=== PATIENT | male | born 1960 | race Caucasian/White ===

== ENCOUNTER 2017-06-02 22:36 | Observation (INO) | payer MEDICAID ==
[2017-06-02 22:52] VITALS: RESP 20
[2017-06-02] MEDS ORDERED: Sodium Chloride 0.9% 1,000 ML IV ONE (23:42)
[2017-06-02 23:52] LABS: BASO # 0.1 K/uL (0.0-0.2); BASO % 0.9 % (0.0-2.0); EOS # 0.2 K/uL (0.0-0.7); EOS % 2.7 % (0.0-4.0); HEMOGLOBIN 15.4 g/dL (12.0-18.0); LYMPH # 2.5 K/uL (1.0-4.3); LYMPH % 31.5 % (20.0-40.0); MEAN CORPUSCULAR HEMOGLOBIN 30.7 pg (27.0-31.0); MEAN CORPUSCULAR HGB CONC 34.1 g/dL (33.0-37.0); MEAN PLATELET VOLUME 8.9 fL (7.2-11.7); MONO # 0.8 K/uL (0.0-0.8); MONO % 9.9 % (0.0-10.0); NEUT # 4.3 K/uL (1.8-7.0); NRBC % 0.1 % (0.0-2.0); RBC 5.01 Mil/uL (4.40-5.90); RED CELL DISTRIBUTION WIDTH 13.9 % (11.5-14.5); WHITE BLOOD COUNT 7.8 K/uL (4.8-10.8)
--- NOTE | 2017-06-03 00:11 | C.PDOC ---
History Of Present Illness 56 year old male with a Hx diabetes and HTN presents to the ER with a complaint of chest discomfort and dizzines, states he felt like he was going to "pass out ". Denies nausea or vomiting. Time Seen by Provider: 06/02/17 23:28 Chief Complaint (Nursing): Dizziness/Lightheaded History Per: Patient History/Exam Limitations: no limitations Onset/Duration Of Symptoms: Hrs Current Symptoms Are (Timing): Still Present Seizure Or Post-ictal Symptoms: None Fall Associated With With Symptoms: No Recent travel outside of the [place]: No Past Medical History Reviewed: Historical Data, Nursing Documentation, Vital Signs Vital Signs: Last Vital Signs Temp 97.5 F L 06/02/17 22:45 Pulse 95 H 06/02/17 23:41 Resp 20 06/02/17 22:45 BP 112/74 06/02/17 22:45 Pulse Ox 98 06/03/17 00:16 - Medical History PMH: Diabetes, HTN Family History: States: Unknown Family Hx - Social History Hx Tobacco Use: No Hx Alcohol Use: No Hx Substance Use: No - Immunization History Hx Tetanus Toxoid Vaccination: Yes Hx Influenza Vaccination: Yes Hx Pneumococcal Vaccination: Yes Review Of Systems Except As Marked, All Systems Reviewed And Found Negative. Constitutional: Negative for: Fever, Chills Cardiovascular: Positive for: Chest Pain Respiratory: Negative for: Shortness of Breath Gastrointestinal: Negative for: Nausea, Vomiting, Abdominal Pain Neurological: Positive for: Dizziness Physical Exam - Physical Exam Appears: Non-toxic Skin: Normal Color, Warm, Dry Head: Atraumatic, Normacephalic Eye(s): bilateral: Normal Inspection Oral Mucosa: Moist Neck: Normal, No Midline Cervical Tenderness, No Paracervical Tenderness, Supple Chest: Symmetrical, No Tenderness Cardiovascular: Rhythm Regular Respiratory: Normal Breath Sounds, No Rales, No Rhonchi, No Wheezing Gastrointestinal/Abdominal: Soft, No Tenderness Neurological/Psych: Oriented x3, Normal Speech ED Course And Treatment - Laboratory Results Result Diagrams: 06/02/17 23:55 ECG: Interpreted By Me, Viewed By Me ECG Rhythm: Sinus Rhythm Interpretation Of ECG: Left axis deviation with t wave abnormalities. Rate From EC O2 Sat by Pulse Oximetry: 98 Medical Decision Making Medical Decision Making: Plan: * CT head * EKG * Blood work * Urinalysis * CXR * Antivert * IV fluids Will admit patient to Telemetry/Observation under Dr. Julio Garcia's service for near syncope and chest pain. Disposition Discussed With Dr.: Tricia Garcia Doctor Will See Patient In The: Hospital Counseled Patient/Family Regarding: Studies Performed, Diagnosis - Disposition Disposition: HOSPITALIZED Disposition Time: 00:17 Condition: FAIR Forms: [facility] (Bahamian) - POA Core Measure Indicators: Chest Pain - Clinical Impression Clinical Impression: Dizziness, Near syncope - Scribe Statement The provider has reviewed the documentation as recorded by the Scribmelissa Ron All medical record entries made by the Varinderibmelissa were at my direction and personally dictated by me. I have reviewed the chart and agree that the record accurately reflects my personal performance of the history, physical exam, medical decision making, and the department course for this patient. I have also personally directed, reviewed, and agree with the discharge instructions and disposition.
[2017-06-03] MEDS ORDERED: Sodium Chloride 0.9% 1,000 ML ONE (00:25)
--- NOTE | 2017-06-03 00:27 | CT ---
EXAM: CT Head Without Intravenous Contrast CLINICAL HISTORY: 56 years old, male; Pain; Headache and other: Dizziness TECHNIQUE: Axial computed tomography images of the head/brain without intravenous contrast. All CT scans at this facility use one or more dose reduction techniques, viz.: automated exposure control; ma/kV adjustment per patient size (including targeted exams where dose is matched to indication; i.e. head); or iterative reconstruction technique. Coronal and sagittal reformatted images were created and reviewed. COMPARISON: No relevant prior studies available. FINDINGS: Brain: Minimal atrophy. No intracranial hemorrhage. No mass. No definite edema. Ventricles: No hydrocephalus. Bones/joints: No acute fracture. Soft tissues: Unremarkable. Sinuses: Scattered minimal mucosal thickening. Mastoid air cells: Minimal opacification of RIGHT inferior mastoid. Orbits: Unremarkable as visualized. IMPRESSION: 1. No definite acute intracranial abnormality. 2. Incidental/non-acute findings are described above.
[2017-06-03] MEDS ORDERED: Enoxaparin 40 mg Syringe SC ONE (00:47)
[2017-06-03 01:37] LABS: URINE BILIRUBIN NEGATIVE (NEGATIVE); URINE BLOOD NEGATIVE (NEGATIVE); URINE CLARITY Clear (Clear); URINE COLOR Yellow (YELLOW); URINE GLUCOSE (UA) 3+ mg/dL (Normal); URINE LEUKOCYTE ESTERASE NEG Leu/uL (Negative); URINE NITRATE NEGATIVE (NEGATIVE); URINE PROTEIN NEGATIVE (NEGATIVE); URINE UROBILINOGEN NORMAL mg/dL (0.2-1.0)
[2017-06-03 01:52] LABS: ALB/GLOB RATIO 1.3 (1.0-2.1); ALBUMIN 4.5 g/dL (3.5-5.0); ALT/SGPT 32 U/L (21-72); AST/SGOT 38 U/L (17-59); BLOOD UREA NITROGEN 28 mg/dL (9-20); CALCIUM 9.6 mg/dl (8.6-10.4); GFR AFRICAN-AMERICAN > 60; GFR NON-AFRICAN AMERICAN > 60
[2017-06-03 02:03] LABS: B-TYPE NATRIURETIC PEPTIDE 24.7 pg/mL (0-900)
--- NOTE | 2017-06-03 07:39 | RAD ---
HISTORY: chest pain COMPARISON: None available. TECHNIQUE: Chest, one view. FINDINGS: Examination limited by habitus and hypoinflation. LUNGS: No focal consolidation. Please note that chest x-ray has limited sensitivity for the detection of pulmonary masses. PLEURA: No significant pleural effusion identified. No definite pneumothorax . CARDIOVASCULAR: Heart size appears top normal. OSSEOUS STRUCTURES: No acute osseous abnormality identified. VISUALIZED UPPER ABDOMEN: Unremarkable. OTHER FINDINGS: None. IMPRESSION: Hypoinflation.
[2017-06-03] MEDS: (Novolog) Insulin Aspart, Recombinant 100 u/ml 10 ml vial SC SCH ×3 (08:44→19:07)
[2017-06-03] MEDS ORDERED: Home Med 1 UNIT (Acarbose [Precose] 100 MG) PO SCH ×2 (10:00)
[2017-06-03] MEDS ORDERED: METFORMIN HCL PO SCH ×2 (10:00)
[2017-06-03] MEDS ORDERED: ALOGLIPTIN BENZ PO SCH ×2 (10:00)
[2017-06-03] MEDS ORDERED: Home Med 1 UNIT (Empagliflozin [Jardiance] 25 MG) PO SCH ×2 (10:00)
[2017-06-03] MEDS: Pantoprazole 40 mg EC Tab PO SCH (10:17)
[2017-06-03] MEDS: Enoxaparin 40 mg Syringe SC SCH (10:17)
--- NOTE | 2017-06-03 14:05 | CP.PCM.CON ---
History of Present Illness - History of Present Illness History of Present Illness: 56 year old man with DM, HTN. He is reporting one day onset of severe chest pain. Pain is located in the left chest. Pain is sharp in character. Pain druation was 2-5 minutes. He is reporting similar symptoms 2 weeks ago. He is unable to identify any modifying maneuvers. Review of Systems - Review of Systems All systems: reviewed and no additional remarkable complaints except Past Patient History - Past Social History Smoking Status: Never Smoked - CARDIAC Hx Hypertension: Yes - NEUROLOGICAL Hx Dizziness: Yes - ENDOCRINE/METABOLIC Hx Diabetes Mellitus Type 2: Yes - PSYCHIATRIC Hx Substance Use: No - SURGICAL HISTORY Other/Comment: knee sx. gallbladder sx - ANESTHESIA Hx Anesthesia: No Hx Anesthesia Reactions: No Hx Malignant Hyperthermia: No Has any member of the family had a problem w/ anesthesia?: No Meds Allergies/Adverse Reactions: Allergies Allergy/AdvReac Type Severity Reaction Status Date / Time No Known Allergies Allergy Verified 06/02/17 22:52 - Medications Medications: Current Medications Aspirin (Ecotrin) 81 mg PO DAILY [facility] Last Admin: 06/03/17 10:35 Dose: 81 mg Baclofen (Lioresal) 10 mg PO DAILY [facility] Last Admin: 06/03/17 10:37 Dose: 10 mg Enalapril Maleate (Vasotec) 10 mg PO BID [facility] Last Admin: 06/03/17 10:17 Dose: 10 mg Enoxaparin Sodium (Lovenox) 40 mg SC DAILY [facility] Last Admin: 06/03/17 10:17 Dose: 40 mg Gabapentin (Neurontin) 300 mg PO DAILY [facility] Last Admin: 06/03/17 10:17 Dose: 300 mg Home Med (Acarbose [Precose]) 100 mg PO DAILY [facility] Home Med (Alogliptin Mir/Metformin Hcl [Alogliptin-Metformin 12.5-1000]) 1 each PO BID [facility] Home Med (Empagliflozin [Jardiance]) 25 mg PO DAILY [facility] Hydrochlorothiazide (Hydrodiuril) 25 mg PO BID [facility] Last Admin: 06/03/17 10:17 Dose: 25 mg Insulin Aspart (Novolog) 0 unit SC ACHS [facility] PRN Reason: Protocol Last Admin: 06/03/17 12:52 Dose: 1 unit Loratadine (Claritin) 10 mg PO DAILY [facility] Last Admin: 06/03/17 10:17 Dose: 10 mg Pantoprazole Sodium (Protonix Ec Tab) 40 mg PO DAILY [facility] Last Admin: 06/03/17 10:17 Dose: 40 mg Pioglitazone HCl (Actos) 45 mg PO DAILY [facility] Rosuvastatin Calcium (Crestor) 5 mg PO HS [facility] Physical Exam - Constitutional Appears: Well, Non-toxic - Head Exam Head Exam: ATRAUMATIC, NORMAL INSPECTION - Eye Exam Eye Exam: PERRL. absent: Scleral icterus - ENT Exam ENT Exam: Mucous Membranes Moist, Normal External Ear Exam - Neck Exam Neck exam: Positive for: Full Rom. Negative for: Lymphadenopathy - Respiratory Exam Respiratory Exam: Clear to Auscultation Bilateral, NORMAL BREATHING PATTERN - Cardiovascular Exam Cardiovascular Exam: REGULAR RHYTHM, RRR, +S1, +S2. absent: JVD - GI/Abdominal Exam GI & Abdominal Exam: Normal Bowel Sounds. absent: Organomegaly - Extremities Exam Extremities exam: Negative for: calf tenderness, pedal edema - Neurological Exam Neurological exam: CN II-XII Intact, Oriented x3 - Psychiatric Exam Psychiatric exam: Normal Affect, Normal Mood Results - Vital Signs Recent Vital Signs: Last Vital Signs Temp 97.1 F L 06/03/17 07:05 Pulse 78 06/03/17 08:00 Resp 20 06/03/17 07:05 BP 101/63 06/03/17 10:17 Pulse Ox 92 L 06/03/17 03:31 - Labs Result Diagrams: 06/02/17 23:55 06/03/17 01:38 Labs: Laboratory Results - last 24 hr 06/02/17 06/03/17 06/03/17 23:55 01:25 01:38 WBC 7.8 RBC 5.01 Hgb 15.4 D Hct 45.0 MCV 90.0 MCH 30.7 MCHC 34.1 RDW 13.9 Plt Count 271 MPV 8.9 Neut % (Auto) 55.0 Lymph % (Auto) 31.5 [place] % (Auto) 9.9 Eos % (Auto) 2.7 Baso % (Auto) 0.9 Neut # 4.3 Lymph # 2.5 [place] # 0.8 Eos # 0.2 Baso # 0.1 Sodium 134 Potassium 3.7 Chloride 95 L Carbon Dioxide 22 Anion Gap 21 H BUN 28 H Creatinine 1.0 Est GFR ( Amer) > 60 Est GFR (Non-Af Amer) > 60 POC Glucose (mg/dL) Random Glucose 178 H Calcium 9.6 Total Bilirubin 0.7 AST 38 ALT 32 Alkaline Phosphatase 69 Troponin I < 0.0120 NT-Pro-B Natriuret Pep 24.7 Total Protein 8.1 Albumin 4.5 Globulin 3.5 Albumin/Globulin Ratio 1.3 Urine Color Yellow Urine Clarity Clear Urine pH 5.0 Ur Specific [place] 1.026 Urine Protein Negative Urine Glucose (UA) 3+ H Urine Ketones Negative Urine Blood Negative Urine Nitrate Negative Urine Bilirubin Negative Urine Urobilinogen Normal Ur Leukocyte Esterase Neg Urine WBC (Auto) < 1 Urine RBC (Auto) < 1 06/03/17 06/03/17 06/03/17 03:09 08:28 12:43 WBC RBC Hgb Hct MCV MCH MCHC RDW Plt Count MPV Neut % (Auto) Lymph % (Auto) [place] % (Auto) Eos % (Auto) Baso % (Auto) Neut # Lymph # [place] # Eos # Baso # Sodium Potassium Chloride Carbon Dioxide Anion Gap BUN Creatinine Est GFR ( Amer) Est GFR (Non-Af Amer) POC Glucose (mg/dL) 141 H 153 H 180 H Random Glucose Calcium Total Bilirubin AST ALT Alkaline Phosphatase Troponin I NT-Pro-B Natriuret Pep Total Protein Albumin Globulin Albumin/Globulin Ratio Urine Color Urine Clarity Urine pH Ur Specific [place] Urine Protein Urine Glucose (UA) Urine Ketones Urine Blood Urine Nitrate Urine Bilirubin Urine Urobilinogen Ur Leukocyte Esterase Urine WBC (Auto) Urine RBC (Auto) - EKG Data EKG Interpreted by: Myself EKG shows normal: Sinus rhythm - Imaging and Cardiology Chest x-ray Status: Image reviewed by me (No infiltrates ) Assessment & Plan - Assessment and Plan (Free Text) Assessment: 56 year old man with atypical chest pain, check serial trop and serial EKG HTN is chronic and stable on home meds DM is chronic and stable, continue home meds and insulin sliding scale If there is no evidence of myocardial infarction via serial trop then please send him home to follow up with me in 1-2 weeks for further CAD risk stratification as an outpatient. - Date & Time Date: 06/03/17 Time: 14:05
[2017-06-03 14:29] LABS: CK-MB 0.54 ng/mL (0.0-3.38)
--- NOTE | 2017-06-03 17:08 | CP.PCM.HP ---
Past Patient History - Past Social History Smoking Status: Never Smoked - CARDIAC Hx Hypertension: Yes - NEUROLOGICAL Hx Dizziness: Yes - ENDOCRINE/METABOLIC Hx Diabetes Mellitus Type 2: Yes - MUSCULOSKELETAL/RHEUMATOLOGICAL Hx Falls: No - PSYCHIATRIC Hx Substance Use: No - SURGICAL HISTORY Other/Comment: knee sx. gallbladder sx - ANESTHESIA Hx Anesthesia: No Hx Anesthesia Reactions: No Hx Malignant Hyperthermia: No Has any member of the family had a problem w/ anesthesia?: No Meds Allergies/Adverse Reactions: Allergies Allergy/AdvReac Type Severity Reaction Status Date / Time No Known Allergies Allergy Verified 06/02/17 22:52 Physical Exam - Constitutional Appears: Well - Head Exam Head Exam: ATRAUMATIC, NORMAL INSPECTION, NORMOCEPHALIC - Eye Exam Eye Exam: EOMI, Normal appearance, PERRL Pupil Exam: NORMAL ACCOMODATION, PERRL - ENT Exam ENT Exam: Mucous Membranes Moist, Normal Exam - Neck Exam Neck exam: Positive for: Normal Inspection - Respiratory Exam Respiratory Exam: Decreased Breath Sounds - Cardiovascular Exam Cardiovascular Exam: REGULAR RHYTHM, +S1, +S2 - GI/Abdominal Exam GI & Abdominal Exam: Diminished Bowel Sounds, Soft - Rectal Exam Rectal Exam: Deferred Results - Vital Signs Recent Vital Signs: Last Vital Signs Temp 98.1 F 06/03/17 16:03 Pulse 80 06/03/17 16:03 Resp 20 06/03/17 16:03 BP 95/62 L 06/03/17 16:03 Pulse Ox 98 06/03/17 16:07 - Labs Result Diagrams: 06/02/17 23:55 06/03/17 01:38 Labs: Laboratory Results - last 24 hr 06/02/17 06/03/17 06/03/17 23:55 01:25 01:38 WBC 7.8 RBC 5.01 Hgb 15.4 D Hct 45.0 MCV 90.0 MCH 30.7 MCHC 34.1 RDW 13.9 Plt Count 271 MPV 8.9 Neut % (Auto) 55.0 Lymph % (Auto) 31.5 [place] % (Auto) 9.9 Eos % (Auto) 2.7 Baso % (Auto) 0.9 Neut # 4.3 Lymph # 2.5 [place] # 0.8 Eos # 0.2 Baso # 0.1 Sodium 134 Potassium 3.7 Chloride 95 L Carbon Dioxide 22 Anion Gap 21 H BUN 28 H Creatinine 1.0 Est GFR ( Amer) > 60 Est GFR (Non-Af Amer) > 60 POC Glucose (mg/dL) Random Glucose 178 H Calcium 9.6 Total Bilirubin 0.7 AST 38 ALT 32 Alkaline Phosphatase 69 Total Creatine Kinase CK-MB (Mass) Troponin I < 0.0120 NT-Pro-B Natriuret Pep 24.7 Total Protein 8.1 Albumin 4.5 Globulin 3.5 Albumin/Globulin Ratio 1.3 Urine Color Yellow Urine Clarity Clear Urine pH 5.0 Ur Specific [place] 1.026 Urine Protein Negative Urine Glucose (UA) 3+ H Urine Ketones Negative Urine Blood Negative Urine Nitrate Negative Urine Bilirubin Negative Urine Urobilinogen Normal Ur Leukocyte Esterase Neg Urine WBC (Auto) < 1 Urine RBC (Auto) < 1 06/03/17 06/03/17 06/03/17 03:09 08:28 12:43 WBC RBC Hgb Hct MCV MCH MCHC RDW Plt Count MPV Neut % (Auto) Lymph % (Auto) [place] % (Auto) Eos % (Auto) Baso % (Auto) Neut # Lymph # [place] # Eos # Baso # Sodium Potassium Chloride Carbon Dioxide Anion Gap BUN Creatinine Est GFR ( Amer) Est GFR (Non-Af Amer) POC Glucose (mg/dL) 141 H 153 H 180 H Random Glucose Calcium Total Bilirubin AST ALT Alkaline Phosphatase Total Creatine Kinase CK-MB (Mass) Troponin I NT-Pro-B Natriuret Pep Total Protein Albumin Globulin Albumin/Globulin Ratio Urine Color Urine Clarity Urine pH Ur Specific [place] Urine Protein Urine Glucose (UA) Urine Ketones Urine Blood Urine Nitrate Urine Bilirubin Urine Urobilinogen Ur Leukocyte Esterase Urine WBC (Auto) Urine RBC (Auto) 06/03/17 06/03/17 13:50 16:07 WBC RBC Hgb Hct MCV MCH MCHC RDW Plt Count MPV Neut % (Auto) Lymph % (Auto) [place] % (Auto) Eos % (Auto) Baso % (Auto) Neut # Lymph # [place] # Eos # Baso # Sodium Potassium Chloride Carbon Dioxide Anion Gap BUN Creatinine Est GFR ( Amer) Est GFR (Non-Af Amer) POC Glucose (mg/dL) 158 H Random Glucose Calcium Total Bilirubin AST ALT Alkaline Phosphatase Total Creatine Kinase 51 L CK-MB (Mass) 0.54 Troponin I < 0.0120 NT-Pro-B Natriuret Pep Total Protein Albumin Globulin Albumin/Globulin Ratio Urine Color Urine Clarity Urine pH Ur Specific [place] Urine Protein Urine Glucose (UA) Urine Ketones Urine Blood Urine Nitrate Urine Bilirubin Urine Urobilinogen Ur Leukocyte Esterase Urine WBC (Auto) Urine RBC (Auto)
[2017-06-04 08:00] VITALS: PULSE 69; TEMP 97.5; O2SAT 97
[2017-06-04 08:31] LABS: BASO % 0.8 % (0.0-2.0); EOS # 0.3 K/uL (0.0-0.7); EOS % 5.3 % (0.0-4.0); HEMOGLOBIN 13.6 g/dL (12.0-18.0); LYMPH # 1.8 K/uL (1.0-4.3); LYMPH % 32.1 % (20.0-40.0); MEAN CELL VOLUME 90.1 fL (80.0-94.0); MEAN CORPUSCULAR HEMOGLOBIN 31.5 pg (27.0-31.0); MEAN CORPUSCULAR HGB CONC 34.9 g/dL (33.0-37.0); MEAN PLATELET VOLUME 8.7 fL (7.2-11.7); MONO # 0.6 K/uL (0.0-0.8); MONO % 10.7 % (0.0-10.0); NEUT # 2.9 K/uL (1.8-7.0); NEUT % 51.1 % (50.0-75.0); RBC 4.33 Mil/uL (4.40-5.90); RED CELL DISTRIBUTION WIDTH 13.8 % (11.5-14.5); WHITE BLOOD COUNT 5.7 K/uL (4.8-10.8)
[2017-06-04 08:54] LABS: CK-MB 0.42 ng/mL (0.0-3.38)
[2017-06-04 08:59] LABS: ALB/GLOB RATIO 1.2 (1.0-2.1); ALBUMIN 3.8 g/dL (3.5-5.0); ALT/SGPT 28 U/L (21-72); AST/SGOT 23 U/L (17-59); BLOOD UREA NITROGEN 27 mg/dL (9-20); CALCIUM 9.1 mg/dl (8.6-10.4); GFR AFRICAN-AMERICAN > 60; GFR NON-AFRICAN AMERICAN > 60
[2017-06-04] MEDS: Enoxaparin 40 mg Syringe SC SCH (09:25)
[2017-06-04] MEDS: Pantoprazole 40 mg EC Tab PO SCH (09:25)
[2017-06-04] MEDS: (Novolog) Insulin Aspart, Recombinant 100 u/ml 10 ml vial SC SCH ×2 (09:25→12:05)
[2017-06-04 09:30] VITALS: BP 103/63
--- NOTE | 2017-06-04 11:01 | CARD ---
APPROVED REPORT EKG Measurement Heart [id number] <Conclusion> Normal sinus rhythm Left axis deviation Abnormal ECG
--- NOTE | 2017-06-04 12:04 | CP.PCM.PN ---
Subjective - Date & Time of Evaluation Date of Evaluation: 06/04/17 Time of Evaluation: 12:04 - Subjective Subjective: -FOLLOW UP WITH DR. CHARLTON IN THE OFFICE THIS AFTERNOON AFTER DISCHARGE. MAKE SURE YOU TAKE A COPY OF YOUR TESTS WITH YOU WHEN YOU SEE HIM. -CONTINUE ALL MEDICATIONS AT HOME USUAL. -NO NEW PRESCRIPTIONS GIVEN TODAY. 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 -USE THE DICLOFENAC GEL FOR LEFT SHOULDER PAIN---APPLY TO SHOULDER DIRECTED; APPLY CLOTRIMAZOLE CREAM TO ELBOWS DAILY DIRECTED. -MAKE SURE YOU REQUEST FOR A "REFERRAL" FROM DR. CHARLTON TO SEE THE PASSENGER VESSEL CHEF , DR. LOPEZ, IN HIS OFFICE WITHIN 1 WEEK. CALL THE OFFICE TO REQUEST AN APPT TIME WITH DR. LOPEZ. -ALSO REQUEST FOR AN ORTHOPEDIC REFERRAL FOR YOUR LEFT SHOULDER PAIN. YOU MAY NEED TESTS LIKE AN XRAY AND MRI IF YOUR PAIN CONTINUES. -FOR ANY OTHER QUESTIONS OR CONCERNS, CONTACT YOUR DOCTOR'S OFFICE. Objective - Vital Signs/Intake and Output Vital Signs (last 24 hours): Temp Pulse Resp BP Pulse Ox 97.5 F L 69 20 103/63 97 06/04/17 07:05 06/04/17 07:05 06/04/17 07:05 06/04/17 09:25 06/04/17 07:05 - Medications Medications: Current Medications Aspirin (Ecotrin) 81 mg PO DAILY [facility] Last Admin: 06/04/17 09:25 Dose: 81 mg Baclofen (Lioresal) 10 mg PO DAILY [facility] Last Admin: 06/04/17 10:25 Dose: 10 mg Enalapril Maleate (Vasotec) 10 mg PO BID [facility] Last Admin: 06/04/17 09:25 Dose: 10 mg Enoxaparin Sodium (Lovenox) 40 mg SC DAILY [facility] Last Admin: 06/03/17 10:17 Dose: 40 mg Gabapentin (Neurontin) 300 mg PO DAILY [facility] Last Admin: 06/04/17 09:25 Dose: 300 mg Home Med (Acarbose [Precose]) 100 mg PO DAILY [facility] Home Med (Alogliptin Mir/Metformin Hcl [Alogliptin-Metformin 12.5-1000]) 1 each PO BID [facility] Home Med (Empagliflozin [Jardiance]) 25 mg PO DAILY [facility] Hydrochlorothiazide (Hydrodiuril) 25 mg PO BID [facility] Last Admin: 06/04/17 09:25 Dose: 25 mg Insulin Aspart (Novolog) 0 unit SC [facility] PRN Reason: Protocol Last Admin: 06/04/17 09:25 Dose: 1 unit Loratadine (Claritin) 10 mg PO DAILY [facility] Last Admin: 06/04/17 09:25 Dose: 10 mg Pantoprazole Sodium (Protonix Ec Tab) 40 mg PO DAILY [facility] Last Admin: 06/04/17 09:25 Dose: 40 mg Pioglitazone HCl (Actos) 45 mg PO DAILY [facility] Last Admin: 06/04/17 10:25 Dose: 45 mg Pneumococcal Polyvalent Vaccine (Pneumovax 23 Vaccine) 0.5 ml IM .ONCE ONE Stop: 06/05/17 10:01 Rosuvastatin Calcium (Crestor) 5 mg PO [facility] Last Admin: 06/03/17 21:11 Dose: 5 mg - Labs Labs: 06/04/17 08:13 06/04/17 08:20
--- NOTE | 2017-06-04 14:03 | CP.PCM.PN ---
Subjective - Date & Time of Evaluation Date of Evaluation: 06/04/17 Time of Evaluation: 14:02 - Subjective Subjective: PGY2 progress note for Dr. Garcia Pt seen and examined at bedside. No acute events overnight. pt resting comfortably. Patient denies having any CP, SOB, abd pain, N/V/D/C, F/C. Tolerating trip. Objective - Vital Signs/Intake and Output Vital Signs (last 24 hours): Temp Pulse Resp BP Pulse Ox 97.5 F L 69 20 103/63 97 06/04/17 07:05 06/04/17 07:05 06/04/17 07:05 06/04/17 09:25 06/04/17 07:05 - Medications Medications: Current Medications Aspirin (Ecotrin) 81 mg PO DAILY [facility] Last Admin: 06/04/17 09:25 Dose: 81 mg Baclofen (Lioresal) 10 mg PO DAILY [facility] Last Admin: 06/04/17 10:25 Dose: 10 mg Enalapril Maleate (Vasotec) 10 mg PO BID [facility] Last Admin: 06/04/17 09:25 Dose: 10 mg Enoxaparin Sodium (Lovenox) 40 mg SC DAILY [facility] Last Admin: 06/04/17 09:25 Dose: 40 mg Gabapentin (Neurontin) 300 mg PO DAILY [facility] Last Admin: 06/04/17 09:25 Dose: 300 mg Home Med (Acarbose [Precose]) 100 mg PO DAILY [facility] Home Med (Alogliptin Mir/Metformin Hcl [Alogliptin-Metformin 12.5-1000]) 1 each PO BID [facility] Home Med (Empagliflozin [Jardiance]) 25 mg PO DAILY [facility] Hydrochlorothiazide (Hydrodiuril) 25 mg PO BID [facility] Last Admin: 06/04/17 09:25 Dose: 25 mg Insulin Aspart (Novolog) 0 unit SC ACHS [facility] PRN Reason: Protocol Last Admin: 06/04/17 12:05 Dose: 1 unit Loratadine (Claritin) 10 mg PO DAILY [facility] Last Admin: 06/04/17 09:25 Dose: 10 mg Pantoprazole Sodium (Protonix Ec Tab) 40 mg PO DAILY [facility] Last Admin: 06/04/17 09:25 Dose: 40 mg Pioglitazone HCl (Actos) 45 mg PO DAILY [facility] Pneumococcal Polyvalent Vaccine (Pneumovax 23 Vaccine) 0.5 ml IM .ONCE ONE Stop: 06/05/17 10:01 Rosuvastatin Calcium (Crestor) 5 mg PO HS [facility] Last Admin: 06/03/17 21:11 Dose: 5 mg - Labs Labs: 06/04/17 08:13 06/04/17 08:20 - Constitutional Appears: Non-toxic, No Acute Distress - Head Exam Head Exam: ATRAUMATIC - ENT Exam ENT Exam: Mucous Membranes Moist - Respiratory Exam Respiratory Exam: Clear to Ausculation Bilateral. absent: Accessory Muscle Use , Rales, Rhonchi, Wheezes, Respiratory Distress - Cardiovascular Exam Cardiovascular Exam: REGULAR RHYTHM, +S1, +S2. absent: Gallop, Rubs, Murmur - GI/Abdominal Exam GI & Abdominal Exam: Soft, Normal Bowel Sounds. absent: Distended, Firm, Guarding, Rigid, Tenderness, Organomegaly - Extremities Exam Extremities Exam: absent: Pedal Edema, Tenderness - Neurological Exam Neurological Exam: Alert, Awake, Oriented x3 - Psychiatric Exam Psychiatric exam: Normal Affect, Normal Mood - Skin Skin Exam: Dry, Intact, Normal Color, Warm Assessment and Plan - Assessment and Plan (Free Text) Assessment: 56 year old male with pats medical history of DM and HTN presented for chest pain Chest pain Troponin were negative x2 and EKG showed NSR Cardiology was consulted and recommended outpt follow up in 1-2 weeks after discharge CXR was negative Pt was placed on Aspirin, Vasotec, Crestor DM Continue home medication: Acarbose, Alogliptin-metformin and Jardiance ISS Hgb A1C in 04/20 was 6.5 Continue Vasotec and Crestor Diabetic neuropathy Continue gabapentin HLD Lipid panel done on 04/20 showed elevated TG HTN Continue Vasotec and HCTZ Prophylaxis Continue lovenox and protonix Case discussed with attending, Dr. Garcia. all managements and orders per Dr. Garcia -FOLLOW UP WITH DR. CHARLTON IN THE OFFICE THIS AFTERNOON AFTER DISCHARGE. MAKE SURE YOU TAKE A COPY OF YOUR TESTS WITH YOU WHEN YOU SEE HIM. -CONTINUE ALL MEDICATIONS AT HOME USUAL. -NO NEW PRESCRIPTIONS GIVEN TODAY. 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 -USE THE DICLOFENAC GEL FOR LEFT SHOULDER PAIN---APPLY TO SHOULDER DIRECTED; APPLY CLOTRIMAZOLE CREAM TO ELBOWS DAILY DIRECTED. -MAKE SURE YOU REQUEST FOR A "REFERRAL" FROM DR. CHARLTON TO SEE THE PROFESSIONAL DRIVER , DR. LOPEZ, IN HIS OFFICE WITHIN 1 WEEK. CALL THE OFFICE TO REQUEST AN APPT TIME WITH DR. LOPEZ. -ALSO REQUEST FOR AN ORTHOPEDIC REFERRAL FOR YOUR LEFT SHOULDER PAIN. YOU MAY NEED TESTS LIKE AN XRAY AND MRI IF YOUR PAIN CONTINUES. -FOR ANY OTHER QUESTIONS OR CONCERNS, CONTACT YOUR DOCTOR'S OFFICE.
[2017-06-05] MEDS ORDERED: Pneumococcal 23-Valent Vaccine IM ONE (10:00)
== END 2017-06-04 15:10 | disposition home or self-care (01) ==
LOC: C.ER 22:36 → C.9E 06-03 00:12 → C.5S 06-03 01:46
PROVIDERS: ADMIT Internal Medicine Nephrology; ATTEND Internal Medicine Nephrology
DX: R07.89 Other chest pain (principal); E11.40 Type 2 diabetes mellitus with diabetic neuropathy, unspecified; E78.5 Hyperlipidemia, unspecified; I10 Essential (primary) hypertension; Z79.899 Other long term (current) drug therapy; Z79.4 Long term (current) use of insulin
CPT/HCPCS: 36415; 70450; 71045; 80053; 81001; 82948; 83880; 84484; 85025; 93005; 99285; G0378; J1650; J7040

== ENCOUNTER 2018-08-22 15:43 | Emergency (ER) | payer MEDICAID ==
[2018-08-22 15:54] VITALS: BP 106/70; PULSE 79; RESP 20; TEMP 98.2; O2SAT 98
[2018-08-22] MEDS ORDERED: SILVASORB ANTIMICROBIAL WOUND GEL TOP STA (16:13)
[2018-08-22] MEDS ORDERED: Silver Sulfadiazine 1% Cream (20 gm) ONE (16:21)
--- NOTE | 2018-08-22 16:37 | C.PDOC ---
History Of Present Illness 57 year old male presents to the ED complaining of wound to left hand for one week. Reports the back of his left hand touched a hot browning. States he has been applying antibiotic ointment but recently noticed redness surrounding the area which prompted ED visit. Denies any fever, chills, discharge, weakness, or numbness. Reports his blood sugar was 176 when he checked it this morning, about his normal. Time Seen by Provider: 08/22/18 15:53 Chief Complaint (Nursing): Abnormal Skin Integrity History Per: Patient History/Exam Limitations: no limitations Onset/Duration Of Symptoms: Days Current Symptoms Are (Timing): Still Present Location Of Injury: Left: Hand (wound) Quality Of Symptoms: Other (redness) Past Medical History Reviewed: Historical Data, Nursing Documentation, Vital Signs Vital Signs: Last Vital Signs Temp 98.2 F 08/22/18 15:52 Pulse 79 08/22/18 15:52 Resp 20 08/22/18 15:52 BP 106/70 08/22/18 15:52 Pulse Ox 98 08/22/18 15:52 - Medical History PMH: Diabetes, HTN Surgical History: No Surg Hx Family History: States: No Known Family Hx - Social History Hx Tobacco Use: No Hx Alcohol Use: No Hx Substance Use: No - Immunization History Hx Tetanus Toxoid Vaccination: Yes Hx Influenza Vaccination: Yes Hx Pneumococcal Vaccination: Yes Review Of Systems Except As Marked, All Systems Reviewed And Found Negative. Constitutional: Negative for: Fever ( ), Chills Skin: Positive for: Other (wound to left hand with redness, no discharge ) Neurological: Negative for: Weakness, Numbness Physical Exam - Physical Exam Appears: Non-toxic, No Acute Distress Skin: Warm, Dry, No Rash, Other (4cm wound to left dorsal aspect of hand with central scabbing and mild surrounding erythema. Wound appears to be healing. It is dry, no dishcarge, no increased warmth , no streaking. No circumferential. Full ROM. ) Head: Normacephalic Eye(s): bilateral: Normal Inspection, EOMI Nose: Normal Oral Mucosa: Moist Neck: Normal ROM, Supple Chest: Symmetrical Cardiovascular: Rhythm Regular Respiratory: No Accessory Muscle Use, Other (Speaking full sentences ) Extremity: Normal ROM, Capillary Refill (< 2 sec), No Swelling Extremity: Bilateral: Normal Color And Temperature, Normal ROM Pulses: Left Radial: Normal, Right Radial: Normal Neurological/Psych: Oriented x3, Normal Speech, Normal Motor, Normal Sensation Gait: Steady ED Course And Treatment O2 Sat by Pulse Oximetry: 98 (RA) Pulse Ox Interpretation: Normal Progress Note: Patient treated with Keflex. Area cleaned and dressed with Silver Wound Gel. Area of erythema circled and patient instructed to follow up in 2 days. Disposition - Disposition Disposition: HOME/ ROUTINE Disposition Time: 16:34 Condition: STABLE Additional Instructions: Wound check in 2 days. Return to ER if symptoms persist or worsen. 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 - Scribe Statement The provider has reviewed the documentation as recorded by the Scribe Cheryl Cope All medical record entries made by the Varinderibmelissa were at my direction and personally dictated by me. I have reviewed the chart and agree that the record accurately reflects my personal performance of the history, physical exam, medical decision making, and the department course for this patient. I have also personally directed, reviewed, and agree with the discharge instructions and disposition.
== END 2018-08-22 16:45 | disposition home or self-care (01) ==
LOC: C.ER 15:43
DX: T23.062A Burn of unspecified degree of back of left hand, initial encounter (principal); X19.XXXA Contact with other heat and hot substances, initial encounter; L03.114 Cellulitis of left upper limb